=== PATIENT | male | born 1945 | race Caucasian/White ===

== ENCOUNTER 2020-08-30 10:33 | Observation (INO) | payer BC, OTHER ==
--- NOTE | 2020-08-30 10:55 | PDOC ---
History of Present Illness - General Chief Complaint: Injury Stated Complaint: FALL, LACERATION Time Seen by Provider: 08/30/20 10:55 - History of Present Illness Initial Comments: 08/30/20 11:25 75 M with NIDDM, liver cancer ( on immunotherapy), anxiety BIBA from home for unable to getting up s/p fall. Patient was watching TV, went to the Toilet, tripped and fell face down. Denied LOC. He was on the floor for over 10 hours. Denied N/V/chest pain/abdominal pain/ back pain/pelvic pain/legs pain. He is AOx4. Collateral information was taken from daughter over the phone. Her name is Casi Duvall ). She revealed that he was admitted to [facility] for dehydration. The course of hospital visit was 3 weeks. Afterward, he was discharged to a [facility] for 2 weeks. There, he couldn't do his immunotherapy due to dehydration. He was also seen by Dr. Akhtar there for wound infection. His course of immunotheraphy is supposed to be q3 weeks. His oncologist name is Selina From [facility]. They tried to move him closer to the daughter 's home up [facility] , but he resisted and wanted to live independently. 08/30/20 11:37 PMHX: as in HPI PSHX: gallbladder removal, appendectomy. Meds: insulin. Allergies: none Tob:none Etoh: none Rec drugs:none PCP: Joana. Wound doctor: Hermilo. HUGH GENERAL/CONSTITUTIONAL: No fever or chills. No weakness. HEAD, EYES, EARS, NOSE AND THROAT: No change in vision. No ear pain or discharge. No sore throat. CARDIOVASCULAR: No chest pain or shortness of breath RESPIRATORY: No cough, wheezing, or hemoptysis. GASTROINTESTINAL: No nausea, vomiting, diarrhea or constipation. GENITOURINARY: No dysuria, frequency, or change in urination. MUSCULOSKELETAL: No joint or muscle swelling or pain.+neck pain (chronic) . SKIN: No rash NEUROLOGIC: +headache,no vertigo, loss of consciousness, or change in strength/sensation. ENDOCRINE: No increased thirst. No abnormal weight change HEMATOLOGIC/LYMPHATIC: No anemia, easy bleeding, or history of blood clots. ALLERGIC/IMMUNOLOGIC: No hives or skin allergy. PE GENERAL: AOx4 in no acute distress HEAD: No signs of trauma, normocephalic, atraumatic EYES: PERRLA, EOMI, sclera anicteric, conjunctiva clear ENT: Auricles normal inspection, hearing grossly normal, nares patent, oropharynx has dry blood on the tongue. Nose has dry blood on it, skewed in alignment but this is normal. NECK: Normal ROM, supple, no lymphadenopathy, JVD, or masses LUNGS: No distress, speaks full sentences, clear to auscultation bilaterally HEART: Regular rate and rhythm, normal S1 and S2, no murmurs, rubs or gallops, peripheral pulses normal and equal bilaterally. ABDOMEN: Soft, nontender, normoactive bowel sounds. No guarding, no rebound. No masses. ecchymosis on the insulin injection site. EXTREMITIES : Normal range of motion, no edema. chronic wounds on the right leg (non erythema, non tenderness) healing well.Right knee (erythema, warm) NEUROLOGICAL: Cranial nerves II through XII grossly intact. Normal speech, no focal sensorimotor deficits SKIN: Warm, Dry, normal turgor, no rashes or lesions noted 08/30/20 11:43 08/30/20 14:21 Past History - Medical History Allergies/Adverse Reactions: Allergies Allergy/AdvReac Type Severity Reaction Status Date / Time No Known Allergies Allergy Verified 08/30/20 10:46 Home Medications: Ambulatory Orders Collagenase Clostridium Hist. [Santyl] 1 applic TP DAILY #90 oint...g. 06/08/20 LORazepam [Ativan] 0.5 mg PO TID PRN 06/08/20 Metformin HCl [Glucophage] 500 mg PO DAILY 06/08/20 Cancer: Yes (H/O Liver tumor) COPD: No Diabetes: Yes Liver Disease: Yes (Liver tumor) - Surgical History Appendectomy: Yes (Age 19) Cholecystectomy: Yes (25 yrs ago) - Psycho-Social/Smoking History Smoking History: Never smoked Have you smoked in the past 12 months: No Information on smoking cessation initiated: No - Substance Abuse Hx (Audit-C & DAST Scrn) How often the patient has a drink containing alcohol: Never Score: In Men: 4 or > Positive; In Women: 3 or > Positive: 0 Screen Result (Pos requires Nsg. Audit-10AR): Negative In the last yr the pt used illegal drug/Rx for NonMed reason: No Score: Yes response is considered Positive: 0 Screen Result (Positive result requires Nsg. DAST-10): Negative *Physical Exam - Vital Signs Last Vital Signs Temp Pulse Resp BP Pulse Ox 97.6 F 104 H 18 149/72 98 08/30/20 10:46 08/30/20 10:46 08/30/20 10:46 08/30/20 10:46 08/30/20 10:46 ED Treatment Course - LABORATORY CBC & Chemistry Diagram: 08/30/20 12:36 08/30/20 12:36 Medical Decision Making - Medical Decision Making 08/30/20 11:42 75 M with IDDM presented here for unable to get up after a mechanical fall. -HEAD CT+ neck + facial bone -CBC, CMP , trop, Mag, CPK. -EKG -Chest Xray. -UA Concerning for brain bleed, rhapdomyosis, infection. Result: -HEAD CT+ neck + facial bone: nonconcerning/negative for acute brain b leed/fracture. -Bloodwork revealed: elevated LIver enzymes, High total bili of 6.2, high alphos -EKG: sinus rhtym with PVC , vent rate 100, QTc 462, no previous EKG to compare to. Per daughter's information, his liver enzyme is high on baseline. She worked in health care and knew all the information from him. Plan to admit him due to unable to get up. 08/30/20 14:34 When admitted, please have social work associate called the daughter for the purpose of insurance and rehab placement. ([phone]). Discharge - Discharge Information Problems reviewed: Yes Clinical Impression/Diagnosis: Inability to walk Fall Qualifiers: Encounter type: sequela Qualified Code(s): W19.XXXS - Unspecified fall, sequela Condition: Good - Admission Yes - Follow up/Referral - Patient Discharge Instructions - Post Discharge Activity
[2020-08-30] MEDS ORDERED: LACTATED RINGERS SOLUTION 1000 ML INFUS.BAG IV ONE (11:17)
[2020-08-30] MEDS ORDERED: ACETAMINOPHEN 1000 MG/100 ML VIAL (NON FORMULARY) IVPB ONE (11:17)
[2020-08-30] MEDS ORDERED: ACETAMINOPHEN INJECTION 100 ML IVPB ONE (11:23)
[2020-08-30 13:04] LABS: BASO % 0.7 % (0-2.0); EOS % 0.3 % (0-4.5); HEMATOCRIT 43.6 % (35.4-49); LYMPH % 11.7 % (8-40); MCH 35.7 pg (25.7-33.7); MCHC 34.5 g/dl (32.0-35.9); MEAN CELL VOLUME 103.5 fl (80-96); MEAN PLT VOLUME 7.1 fl (7.5-11.1); MONO % 12.4 % (3.8-10.2); NEUT % 74.9 % (42.8-82.8); PLATELET COUNT 155 K/MM3 (134-434); RBC 4.21 M/mm3 (4.00-5.60); RDW 16.8 % (11.9-15.9); WHITE BLOOD COUNT 7.9 K/mm3 (4.0-10.0)
[2020-08-30 13:16] LABS: POTASSIUM 4.1 mmol/L (3.5-5.1)
[2020-08-30 13:25] LABS: ALBUMIN 2.4 g/dl (3.4-5.0); BILIRUBIN,TOTAL 6.2 mg/dL (0.2-1); BLOOD UREA NITROGEN 9.3 mg/dL (7-18); CALCIUM 9.2 mg/dL (8.5-10.1); CREATININE 0.6 mg/dL (0.55-1.3); TOT PROT 6.5 g/dl (6.4-8.2)
[2020-08-30 13:28] LABS: MAGNESIUM 2.3 mg/dL (1.8-2.4)
--- NOTE | 2020-08-30 13:42 | PDOC ---
Documentation entered by Randy Will SCRIBE, acting as scribe for Alfonso Arias MD. Alfonso Arias MD: This documentation has been prepared by the scribe, Randy Will SCRIBE, under my direction and personally reviewed by me in its entirety. I confirm that the documentation accurately reflects all work, treatment, procedures, and medical decision making performed by me. Attending Attestation - Resident Resident Name: Hermilo Armando - ED Attending Attestation I have performed the following: I have examined & evaluated the patient, The case was reviewed & discussed with the resident, I agree w/resident's findings & plan, Exceptions are as noted - HPI HPI: 08/30/20 11:31 The patient is a 75 year old male with a significant past medical history of liver cancer and DM who presents to the emergency department for evaluation s/p mechanical fall twelve hours ago. The patient reports he stood up after watching television to go to sleep and tripped and fell. He has been walking with a walker and he let go of the walker to go into the bathroom since it is very small and fell. He notes he landed forward and hit his nose on the ground. He endorses he was unable to get up, laying on his face on the floor for ten hours. The patient was recently admitted at an OSH for right leg wound infection and is following Dr. Akhtar. Denies LOC. The patient denies chest/abdominal/back pain, cough, and shortness of breath. Denies fever, chills, nausea, vomiting, and/or any GI symptoms. Denies any symptoms. Denies any other symptoms. Allergies: NKA Surgical Hx: appendectomy, cholecystectomy - Physicial Exam PE: 08/30/20 11:16 GENERAL: The patient is awake, alert, and fully oriented, Nontoxic - in no acute distress. HEAD: Normocephalic, atraumatic. EYES: extraocular movements intact, sclera anicteric, conjunctiva clear. ENT: Normal voice, dry mucous membranes abrasion over the bridge of nose with deformity, no crepitus or focal tenderness, NECK: Normal range of motion, supple without lymphadenopathy, JVD, or masses. LUNGS: Breath sounds equal, clear to auscultation bilaterally. No wheezes, no crackles, no rales. HEART: Regular rate and rhythm, normal S1 and S2 without murmur, rub or gallop. ABDOMEN: Soft, nontender, normoactive bowel sounds. No guarding, no rebound. No masses. EXTREMITIES: Normal range of motion, trace edema. Ecchymosis on the anterior right knee without significant focal bony tenderness NEUROLOGICAL: No facial asymmetry, Normal speech, moving all 4 extremities spontaneously symmetrically PSYCH: Normal mood, normal affect. SKIN: Warm, Dry, normal turgor, no rashes or lesions noted. Back: No midline tenderness to the cervical, thoracic or lumbar spine Musculoskelatal: FROM of b/l shoulders, elbows, wrist. FROM of hips, knees, ankles - No signs of ecchymosis, erythema, or crepitus noted on palpation extremities, chest wall, clavicals, ribs, back. - Medical Decision Making 08/30/20 13:20 75-year-old gentleman presenting status post mechanical fall Patient with an abrasion on his nose, with some bruising on his lower extremities Will obtain blood work to rule out anemia, metabolic derangements, UA to rule out occult UTI CT head C-spine facial bones to rule out fractures Patient does appear dry we will give fluids for hydration If work-up negative consider possible discharge 08/30/20 16:20 labs reviewed. noted for elevated bilirubin. discused with his family, members he has a hx of ca and lfts are elevated at baseline, although uncertan to what degree. however as pt is generally weak, will admit pt for rehab placement in addition to further eval of his elevated lfts Heart Score/ECG Review - ECG Impressions Comment:: 08/30/20 13:20 Twelve-lead EKG was performed and reviewed by me. There is normal sinus rhythm with a normal rate. Rate of 100 PVC present Discharge - Discharge Information Problems reviewed: Yes Clinical Impression/Diagnosis: Inability to walk, Elevated liver enzymes Fall Qualifiers: Encounter type: sequela Qualified Code(s): W19.XXXS - Unspecified fall, sequela Condition: Stable Disposition: ASSISTED FACILITY - Follow up/Referral - Patient Discharge Instructions - Post Discharge Activity
[2020-08-30 14:42] LABS: BILIRUBIN,DIRECT 3.6 mg/dL (0.0-0.2)
[2020-08-30 14:44] LABS: EPI CELLS 1 /uL (0-25.1); HYALINE CASTS 0 /uL (0-3.1); URINE APPEARANCE CLEAR; URINE BILIRUBIN 2+ (NEGATIVE); URINE COLOR DK YELLOW; URINE GLUCOSE (UA) NEGATIVE (NEGATIVE); URINE KETONE NEGATIVE (NEGATIVE); URINE LEUK ESTERASE TRACE (NEGATIVE); URINE NITRITE POSITIVE (NEGATIVE); URINE PROTEIN TRACE (NEGATIVE); URINE RBC 7 /uL (0-23.9); URINE WBC 6 /uL (0-25.8)
--- NOTE | 2020-08-30 14:46 | HP ---
CHIEF COMPLAINT: Fall PCP: Dr. Bernard Hem/Onc: Dr. Jeramie Camacho ([facility]) Wound Care: Dr. Alex Akhtar HISTORY OF PRESENT ILLNESS: 75yo M with h/o liver Ca (suspecting HCC) on immunotherapy q3 weeks, and Type 2 DM who presents today after mechanical fall. Patient provides information and daughter (Casi: [phone]) provides additional insight. Patient today normally uses a walker for his ADLs, however lost hold of it while transferring from toilet to walker. As a result he fell and remained there for 10 hours. Patient only sustained minor abrasions and never loss consciousness throughout. There were no prodromal symptoms prior to the fall. Patient was noted to have recent hospitalization involving a leg wound, severe dehydration and overall stayed for 3 weeks at [facility]. He was discharged from there to a [facility] ([facility]) for another 2 weeks. Patient wanted to continue living alone and unfortunately his daughter lives in [place] so his family support is limited (she is occupational therapy and her is a PA). Patient is amenable to rehab. Denies any fever/chills, cough, SOB, CP, palpitations, abdominal pain, dysuria, polyuria, hematuria, hematochezia, diarrhea/constipation. His last immunotherapy treatment was Saturday 08/25 and he is not due for another dose for another 3 weeks. Baseline transaminases (as of Jul 2020): Total bilirubin: 6.0 AST: 155 ALT: 56 Alk phos: 306 Recent Travel: None besides hospital and rehab stays PAST MEDICAL HISTORY: As above; will obtain records from hematologists office if possible PAST SURGICAL HISTORY: appendectomy and cholecystectomy age 14 and 27 respectively Social History: Smoking: Denies Alcohol: Former heavy drinker for many years Drugs: Denies Retired; lives home alone ( from Breast Ca many years prior); uses walker FamHx: noncontributory Allergies No Known Allergies Allergy (Verified 08/30/20 10:46) HOME MEDICATIONS: Home Medications Medication Instructions Recorded Collagenase Clostridium Hist. 1 applic TP DAILY #90 oint...g. 06/08/20 [Santyl] LORazepam [Ativan] 0.5 mg PO TID PRN 06/08/20 Metformin HCl [Glucophage] 500 mg PO DAILY 06/08/20 REVIEW OF SYSTEMS As per HPI PHYSICAL EXAMINATION Vital Signs - 24 hr 08/30/20 10:46 Temperature 97.6 F Pulse Rate 104 H Respiratory 18 Rate Blood Pressure 149/72 O2 Sat by Pulse 98 Oximetry (%) GENERAL: Awake, alert, and fully oriented, in no acute distress. HEENT: + scleral icterus, Abrasion to bridge of nose without significant bleeding or laceration, facial bones structurally intact without TTP, MMM without blood in oropharynx NECK: No JVD, no C-spine tenderness LUNGS: CTA bilaterally. No wheezes, and no crackles. No accessory muscle use. HEART: RRR, normal S1 and S2 without murmur ABDOMEN: Soft, nontender, distended, normoactive BS, no guarding, no hepatomegaly or nodularity appreciated. MUSCULOSKELETAL: No bony deformities EXTREMITIES: 2+ pulses, warm, well-perfused. No calf tenderness. RLE healing wound without drainage noted, surrounding erythema noted however not warm to touch. No fluctuance underlying NEUROLOGICAL: Nonfocal exam. strength 3+/5 but symmetrical in lower extremities. patellar reflexes 2/4. sensation intact b/l LExt PSYCHIATRIC: Cooperative. Good eye contact. Appropriate mood and affect. SKIN: Warm, dry, no rashes noted, no overt jaundice Laboratory Results - last 24 hr 08/30/20 08/30/20 08/30/20 12:36 12:36 12:36 WBC 7.9 RBC 4.21 Hgb 15.0 Hct 43.6 MCV 103.5 H MCH 35.7 H MCHC 34.5 RDW 16.8 H Plt Count 155 MPV 7.1 L Absolute Neuts (auto) 5.9 Neutrophils % 74.9 Lymphocytes % 11.7 Monocytes % 12.4 H Eosinophils % 0.3 Basophils % 0.7 Nucleated RBC % 0 Sodium 138 Potassium 4.1 Chloride 104 Carbon Dioxide 28 Anion Gap 5 L BUN 9.3 Creatinine 0.6 Est GFR (CKD-EPI)AfAm 114.80 Est GFR (CKD-EPI)NonAf 99.05 Random Glucose 90 Calcium 9.2 Magnesium 2.3 Total Bilirubin 6.2 H Direct Bilirubin 3.6 H AST 189 H ALT 78 H Alkaline Phosphatase 354 H Creatine Kinase 341 H Creatine Kinase Index 1.4 CK-MB (CK-2) 5.1 H Troponin I < 0.02 Total Protein 6.5 Albumin 2.4 L Urine Color Urine Appearance Urine pH Ur Specific [place] Urine Protein Urine Glucose (UA) Urine Ketones Urine Blood Urine Nitrite Urine Bilirubin Urine Urobilinogen Ur Leukocyte Esterase Urine WBC (Auto) Urine RBC (Auto) Urine Casts (Auto) U Epithel Cells (Auto) 08/30/20 14:30 WBC RBC Hgb Hct MCV MCH MCHC RDW Plt Count MPV Absolute Neuts (auto) Neutrophils % Lymphocytes % Monocytes % Eosinophils % Basophils % Nucleated RBC % Sodium Potassium Chloride Carbon Dioxide Anion Gap BUN Creatinine Est GFR (CKD-EPI)AfAm Est GFR (CKD-EPI)NonAf Random Glucose Calcium Magnesium Total Bilirubin Direct Bilirubin AST ALT Alkaline Phosphatase Creatine Kinase Creatine Kinase Index CK-MB (CK-2) Troponin I Total Protein Albumin Urine Color Dk yellow Urine Appearance Clear Urine pH 5.0 Ur Specific [place] 1.015 Urine Protein Trace Urine Glucose (UA) Negative Urine Ketones Negative Urine Blood Negative Urine Nitrite Positive H Urine Bilirubin 2+ H Urine Urobilinogen 1.0 Ur Leukocyte Esterase Trace Urine WBC (Auto) 6 Urine RBC (Auto) 7 Urine Casts (Auto) 0 U Epithel Cells (Auto) 1 Laboratory Tests 08/30/20 08/30/20 12:36 12:36 Total Bilirubin 6.2 H Direct Bilirubin 3.6 H AST 189 H ALT 78 H Alkaline Phosphatase 354 H Creatine Kinase 341 H ASSESSMENT/PLAN: Mechanical Fall History of Liver Ca receiving immunotherapy RLE wound, chronic Macrocytosis Transminitis related to above Elevated CK related to fall --Due to frequent falls and increasing deconditioning will bring to inpatient stay for placement in STR; pt is amenable and next immunotherapy dose in 3 weeks --PT ordered --SW consult ordered (daughter requests to call her: # in HPI, pt in between employer insurance and medicare) --Imaging reviewed without significant acute pathology --Baseline transaminases as above in HPI; no significant difference comparatively --Holding statin in setting of elevated CK --Continue Paxil 10mg qdaily --Continue Santyl for wound RLE --Lovenox daily for DVT PPX considering malignancy [all medications reconciled with daughter by phone] Dispo: PT and STR planning Herber Wells DO - IM Family Medical History Family History: As Documented Visit type - Medication Review Med list reviewed for High Risk Meds patients 65 and older: Yes - Emergency Visit Emergency Visit: Yes ED Registration Date: 08/30/20 Care time: The patient presented to the Emergency Department on the above date and was hospitalized for further evaluation of their emergent condition. - New Patient This patient is new to me today: Yes Date on this admission: 08/30/20 - Critical Care Critical Care patient: No
[2020-08-30 15:16] LABS: URINE BACTERIA 683.4 /uL (0-1359)
[2020-08-30] MEDS ORDERED: FLU VACCINE (FLULAVAL) PF 60 MCG/0.5 ML SYRINGE 2020-2021 IM ONE (16:15)
[2020-08-30 16:52] VITALS: BMI 30.9
[2020-08-30] MEDS ORDERED: ACETAMINOPHEN 500 MG TABLET (FP) PO ONE (19:32)
[2020-08-31] MEDS ORDERED: PARoxetine HCL 10 MG TABLET PO SCH (10:00)
[2020-08-31] MEDS: ENOXAPARIN NA (PORCINE) 40 MG/0.4 ML DISP.SYRIN SQ SCH (10:51)
[2020-08-31] MEDS: PARoxetine HCL 20 MG TABLET PO SCH (10:51)
[2020-08-31] MEDS: LORazepam 0.5 MG TABLET PO PRN ×2 (10:52→20:54)
--- NOTE | 2020-08-31 13:02 | PN ---
Teaching Attending Note Name of Resident: Ning Eller ATTENDING PHYSICIAN STATEMENT I saw and evaluated the patient. I reviewed the resident's note and discussed the case with the resident. I agree with the resident's findings and plan as documented. SUBJECTIVE: pt seen and examined OBJECTIVE: Last Vital Signs Temp Pulse Resp BP Pulse Ox 97.6 F 87 20 149/71 96 08/31/20 06:00 08/31/20 06:00 08/31/20 06:00 08/31/20 06:00 08/31/20 06:00 GENERAL: Awake, alert, and fully oriented, in no acute distress. HEENT: icterus, Abrasion to bridge of nose without significant bleeding or laceration, PERRLA LUNGS: CTA bilaterally. No wheezes, and no crackles. No accessory muscle use. HEART: RRR, normal S1 and S2 without murmur ABDOMEN: Soft, nontender, distended, normoactive BS, no guarding, no hepatomegaly or nodularity appreciated. MUSCULOSKELETAL: No bony deformities EXTREMITIES: RLE healing wound. NEUROLOGICAL: Non focal exam. general deconditioning CBCD WBC 7.9 K/mm3 (4.0-10.0) 08/30/20 12:36 RBC 4.21 M/mm3 (4.00-5.60) 08/30/20 12:36 Hgb 15.0 GM/dL (11.7-16.9) 08/30/20 12:36 Hct 43.6 % (35.4-49) 08/30/20 12:36 MCV 103.5 fl (80-96) H 08/30/20 12:36 MCHC 34.5 g/dl (32.0-35.9) 08/30/20 12:36 RDW 16.8 % (11.9-15.9) H 08/30/20 12:36 Plt Count 155 K/MM3 (134-434) 08/30/20 12:36 MPV 7.1 fl (7.5-11.1) L 08/30/20 12:36 CMP Sodium 138 mmol/L (136-145) 08/30/20 12:36 Potassium 4.1 mmol/L (3.5-5.1) 08/30/20 12:36 Chloride 104 mmol/L (98-107) 08/30/20 12:36 Carbon Dioxide 28 mmol/L (21-32) 08/30/20 12:36 Anion Gap 5 MMOL/L (8-16) L 08/30/20 12:36 BUN 9.3 mg/dL (7-18) 08/30/20 12:36 Creatinine 0.6 mg/dL (0.55-1.3) 08/30/20 12:36 Random Glucose 90 mg/dL (74-106) 08/30/20 12:36 Calcium 9.2 mg/dL (8.5-10.1) 08/30/20 12:36 Total Bilirubin 6.2 mg/dL (0.2-1) H 08/30/20 12:36 AST 189 U/L (15-37) H 08/30/20 12:36 ALT 78 U/L (13-61) H 08/30/20 12:36 Alkaline Phosphatase 354 U/L (45-117) H 08/30/20 12:36 Total Protein 6.5 g/dl (6.4-8.2) 08/30/20 12:36 Albumin 2.4 g/dl (3.4-5.0) L 08/30/20 12:36 CARDIAC ENZYMES Creatine Kinase 341 U/L (26-308) H 08/30/20 12:36 Troponin I < 0.02 ng/ml (0.00-0.05) 08/30/20 12:36 Active Medications Collagenase (Santyl -) 1 applic TP DAILY JASON; Protocol Enoxaparin Sodium (Lovenox -) 40 mg SQ DAILY JASON Last Admin: 08/31/20 10:51 Dose: 40 mg Documented by: Influenza Virus Vaccine (Flulaval Quad [id number] Syr) 60 mcg IM .ONCE ONE Stop: 08/30/20 19:16 Lorazepam (Ativan -) 0.5 mg PO Q8H PRN PRN Reason: ANXIETY Last Admin: 08/31/20 10:52 Dose: 0.5 mg Documented by: Paroxetine HCl (Paxil -) 20 mg PO DAILY JASON Last Admin: 08/31/20 10:51 Dose: 20 mg Documented by: ASSESSMENT AND PLAN: 75 yo Man with h/o liver Ca (suspecting HCC) on immunotherapy q3 weeks, and Type 2 DM who presents today after mechanical fall. # Deconditioning, s/p Mechanical Fall History of metastatic Liver Ca receiving immunotherapy next dose due 09/15 Liver function close to baseline Imaging reviewed without significant acute pathology Holding statin due to elevated CK SW consult for placement PT fall precautions, aspiration precautions RLE wound, chronic Macrocytosis DVT prophylaxis with LMWH
--- NOTE | 2020-08-31 13:56 | PN ---
Physical Exam: SUBJECTIVE: Patient seen and examined at bedside. No acute events overnight. OBJECTIVE: Vital Signs Period Temp Pulse Resp BP Sys/Mejia Pulse Ox Last 24 Hr 97.6 F-98.5 F 86-94 16-20 125-149/56-78 94-99 GENERAL: AAOx3, in no acute distress. HEENT: NCAT, PERRLA, EOMI, sclera anicteric, conjunctiva clear, oropharynx clear w/o exudates. MMM. healing abrasion on middle of nose. NECK: Normal ROM, supple, no lymphadenopathy, JVD, or masses LUNGS: CTABL no wheezes/ rhonchi/ rales. No distress, speaks in full sentences. No increased work of breathing. HEART: RRR, normal S1 S2, no M/R/G, peripheral pulses 2+ and equal b/l ABDOMEN: Soft, NTND, + BS. No guarding or rebound. No hepatomegaly or splen omegaly. MSK: ROM WNL EXTREMITIES: RLE healing wound. No peripheral edema. No clubbing or cyanosis. NEUROLOGICAL: CN II-XII intact. Normal speech, normal gait, no focal sensorimotor deficits. SKIN: RLE healing wound. Warm, Dry, normal turgor, no rashes or lesions noted Laboratory Results - last 24 hr CBC, BMP 08/30/20 12:36 08/30/20 12:36 08/30/20 08/30/20 08/30/20 11:17 12:36 12:36 Sodium 138 Potassium 4.1 Chloride 104 Carbon Dioxide 28 Anion Gap 5 L BUN 9.3 Creatinine 0.6 Est GFR (CKD-EPI)AfAm 114.80 Est GFR (CKD-EPI)NonAf 99.05 POC Glucometer 69 Random Glucose 90 Calcium 9.2 Total Bilirubin 6.2 H Direct Bilirubin 3.6 H AST 189 H ALT 78 H Alkaline Phosphatase 354 H Creatine Kinase Index 1.4 CK-MB (CK-2) 5.1 H Total Protein 6.5 Albumin 2.4 L Urine Color Urine Appearance Urine pH Ur Specific [place] Urine Protein Urine Glucose (UA) Urine Ketones Urine Blood Urine Nitrite Urine Bilirubin Urine Urobilinogen Ur Leukocyte Esterase Urine WBC (Auto) Urine RBC (Auto) Urine Casts (Auto) U Epithel Cells (Auto) Urine Bacteria (Auto) COVID-19 (SEVEN) 08/30/20 08/30/20 14:30 15:09 Sodium Potassium Chloride Carbon Dioxide Anion Gap BUN Creatinine Est GFR (CKD-EPI)AfAm Est GFR (CKD-EPI)NonAf POC Glucometer Random Glucose Calcium Total Bilirubin Direct Bilirubin AST ALT Alkaline Phosphatase Creatine Kinase Index CK-MB (CK-2) Total Protein Albumin Urine Color Dk yellow Urine Appearance Clear Urine pH 5.0 Ur Specific [place] 1.015 Urine Protein Trace Urine Glucose (UA) Negative Urine Ketones Negative Urine Blood Negative Urine Nitrite Positive H Urine Bilirubin 2+ H Urine Urobilinogen 1.0 Ur Leukocyte Esterase Trace Urine WBC (Auto) 6 Urine RBC (Auto) 7 Urine Casts (Auto) 0 U Epithel Cells (Auto) 1 Urine Bacteria (Auto) 683.4 COVID-19 (SEVEN) Not detected Active Medications Generic Name Dose Route Start Last Admin Trade Name Freq PRN Reason Stop Dose Admin Collagenase 1 applic 08/31/20 10:00 Santyl - TP DAILY [facility] Protocol Enoxaparin Sodium 40 mg 08/31/20 10:00 08/31/20 10:51 Lovenox - SQ 40 mg DAILY JASON Administration Influenza Virus Vaccine 60 mcg 08/31/20 15:00 Flulaval Quad [id number] Syr IM 08/31/20 15:01 .ONCE ONE Lorazepam 0.5 mg 08/30/20 19:08 08/31/20 10:52 Ativan - PO 0.5 mg Q8H PRN Administration ANXIETY Paroxetine HCl 20 mg 08/31/20 10:00 08/31/20 10:51 Paxil - PO 20 mg DAILY JASON Administration ASSESSMENT/PLAN: 75 y/o Male with PMX of liver Ca on immunotherapy Q3 weeks, and DM who presenting after a mechanical fall. #Mechanical Fall -likely due to Deconditioning -Imaging reviewed; no significant acute pathology - consult for placement -PT on board -fall precautions in place -aspiration precautions in place #Metastatic Liver Ca -currently on immunotherpy -next dose on 09/15 #Transaminitis -chronic -continue to monitor -statin held due to increased CK #Macrocytosis -B12 and folate levels ordered -f/u results #RLE wound -chronic -continue to monitor #FEN -no standing fluids -monitor lytes; replete PRN -Diabetic diet #Ppx -DVT: Lovenox SQ DAILY dispo: short term rehab planning Visit type - Emergency Visit Emergency Visit: No - New Patient This patient is new to me today: Yes Date on this admission: 08/31/20 - Critical Care Critical Care patient: No - Discharge Referral Referred to [facility] No - Medication Review Med list reviewed for High Risk Meds patients 65 and older: Yes ATTENDING PHYSICIAN STATEMENT I saw and evaluated the patient. I reviewed the resident's note and discussed the case with the resident. I agree with the resident's findings and plan as documented. SUBJECTIVE: OBJECTIVE: ASSESSMENT AND PLAN:
[2020-08-31] MEDS ORDERED: FLU VACCINE (FLULAVAL) PF 60 MCG/0.5 ML SYRINGE 2020-2021 IM ONE (15:00)
--- NOTE | 2020-08-31 15:32 | DS ---
Physical Exam: SUBJECTIVE: Patient seen and examined at bedside. No acute events overnight. OBJECTIVE: Vital Signs Period Temp Pulse Resp BP Sys/Mejia Pulse Ox Last 24 Hr 97.6 F-98.5 F 87-94 18-20 136-149/69-71 94-96 PHYSICAL EXAM GENERAL: AAOx3, in no acute distress. HEENT: NCAT, PERRLA, EOMI, sclera anicteric, conjunctiva clear, oropharynx clear w/o exudates. MMM. healing abrasion on middle of nose. NECK: Normal ROM, supple, no lymphadenopathy, JVD, or masses LUNGS: CTABL no wheezes/ rhonchi/ rales. No distress, speaks in full sentences. No increased work of breathing. HEART: RRR, normal S1 S2, no M/R/G, peripheral pulses 2+ and equal b/l ABDOMEN: Soft, NTND, + BS. No guarding or rebound. No hepatomegaly or splenomegaly. MSK: ROM WNL EXTREMITIES: RLE healing wound. No peripheral edema. No clubbing or cyanosis. NEUROLOGICAL: CN II-XII intact. Normal speech, normal gait, no focal sensorimotor deficits. SKIN: RLE healing wound. Warm, Dry, normal turgor, no rashes or lesions noted LABS Laboratory Results - last 24 hr CBC, BMP 08/30/20 12:36 08/30/20 12:36 08/30/20 08/30/20 08/31/20 11:17 15:09 12:05 POC Glucometer 69 Vitamin B12 4008 H Serum Folate 5 COVID-19 (SEVEN) Not detected HOSPITAL COURSE: 75 y/o Male with PMX of liver Ca on immunotherapy Q3 weeks, and DM who presented after a mechanical fall likely due to deconditioning. No acute pathology was seen in imaging. Patient was discharged pending rehab placement. Date of Admission:08/30/20 08/30/20- CT spine w/o contrast- The alignment is satisfactory. No gross fracture or subluxation is seen. Multilevel degenerative disc disease, anterior spondyl osis and mild disc osteophyte complex, as de scribed above. 08/30/20-CT Facial bones w/o contrast-No gross fracture is identified. Both orbits appear unremarkable 08/30/20-CT brain- No prior is available for comparison Moderate volume loss. 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 Otherwise, no CT evidence of acute intracranial pathology is identified. The calvarium is intact. 08/30/20-Liver US-Small liver with increased echotexture and a partially exophytic solid mass lesion measuring 5 cm in maximum dimension for which further evaluation with MRI is recommended. Ascites Status post cholecystectomy. Nonvisualization of the pancreas, abdominal aorta and inferior vena cava. Date of Discharge: 08/31/20 Minutes to complete discharge: 36 Discharge Summary Problems reviewed: Yes Reason For Visit: FALL Current Active Problems Fall (Acute) Inability to walk (Acute) Condition: Stable - Instructions Diet, Activity, Other Instructions: Your visit: You were admitted to the hospital for a fall. We did imaging but found no abnorm alities. Medications changes: -Continue to take all other home medications as prescribed. Follow up: - Visit with your Primary Care Provider, Dr. Bernard in 2 weeks. Additional Instructions: -You are being discharged to short term rehab. -Please return to the Emergency Department if you experience worsening pain, fevers, chills, shortness of breath, or chest pain, or if you experience any wo rsening, new or concerning symptoms Referrals: ON STAFF,NOT [Non Staff, Medical] - 1 Week [facility] - Home Medications Comprehensive Discharge Medication List: Ambulatory Orders Collagenase Clostridium Hist. [Santyl] 1 applic TP DAILY #90 oint...g. 06/08/20 Metformin HCl [Glucophage] 500 mg PO DAILY 06/08/20 Atorvastatin Ca [Lipitor] 40 mg PO HS 08/30/20 Paroxetine HCl [Paxil -] 20 mg PO DAILY 08/30/20 This patient is new to me today: Yes Date on this admission: 08/31/20 Emergency Visit: No Critical Care patient: No - Discharge Referral Referred to [facility] Med [facility] No ATTENDING PHYSICIAN STATEMENT I saw and evaluated the patient. I reviewed the resident's note and discussed the case with the resident. I agree with the resident's findings and plan as documented. SUBJECTIVE: OBJECTIVE: ASSESSMENT AND PLAN:
[2020-08-31] MEDS ORDERED: PT OWN MED DRAWER 7, Y5N ONE (16:54)
--- NOTE | 2020-08-31 17:05 | EKG ---
Test Reason : Blood Pressure : / mmHG Vent. Rate : 100 BPM Atrial Rate : 100 BPM P-R Int : 134 ms QRS Dur : 092 ms QT Int : 364 ms P-R-T Axes : 000 -27 019 degrees QTc Int : 469 ms SINUS RHYTHM WITH OCCASIONAL PREMATURE VENTRICULAR COMPLEXES POSSIBLE LATERAL INFARCT , AGE UNDETERMINED ABNORMAL ECG NO PREVIOUS ECGS AVAILABLE Confirmed by RICH HENRIQUEZ MD ([id number]) on 08/31/2020 5:05:28 PM Referred By: Confirmed By:RICH HENRIQUEZ MD
[2020-08-31] MEDS: COLLAGENASE CLOSTRIDIUM HIST. 30 GRAMS TUBE TP SCH (17:54)
[2020-09-01 08:46] LABS: BASO % 1.2 % (0-2.0); EOS % 4.6 % (0-4.5); HEMATOCRIT 37.2 % (35.4-49); HEMOGLOBIN 12.9 GM/dL (11.7-16.9); LYMPH % 24.9 % (8-40); MCH 35.5 pg (25.7-33.7); MCHC 34.6 g/dl (32.0-35.9); MEAN CELL VOLUME 102.7 fl (80-96); MEAN PLT VOLUME 7.1 fl (7.5-11.1); MONO % 14.1 % (3.8-10.2); NEUT % 55.2 % (42.8-82.8); PLATELET COUNT 118 K/MM3 (134-434); RBC 3.62 M/mm3 (4.00-5.60); WHITE BLOOD COUNT 5.1 K/mm3 (4.0-10.0)
[2020-09-01 08:50] LABS: BLOOD UREA NITROGEN 8.2 mg/dL (7-18); CALCIUM 8.5 mg/dL (8.5-10.1); CREATININE 0.3 mg/dL (0.55-1.3); POTASSIUM 3.9 mmol/L (3.5-5.1)
[2020-09-01] MEDS ORDERED: PT OWN MED DRAWER 7, Y5N ONE (09:50)
[2020-09-01] MEDS: PARoxetine HCL 20 MG TABLET PO SCH (09:55)
[2020-09-01] MEDS: ENOXAPARIN NA (PORCINE) 40 MG/0.4 ML DISP.SYRIN SQ SCH (09:55)
[2020-09-01] MEDS: COLLAGENASE CLOSTRIDIUM HIST. 30 GRAMS TUBE TP SCH (10:25)
[2020-09-01] MEDS ORDERED: FOLIC ACID 1 MG TABLET (FP) PO SCH (11:00)
[2020-09-01 11:01] VITALS: BP 136/61; PULSE 91; TEMP 97.7
--- NOTE | 2020-09-01 13:21 | PN ---
Physical Exam: SUBJECTIVE: Patient seen and examined at bedside. No acute events reported overnight. OBJECTIVE: Vital Signs Period Temp Pulse Resp BP Sys/Mejia Pulse Ox Last 24 Hr 97.6 F-98.5 F 84-98 18-20 135-138/61-77 95-98 GENERAL: AAOx3, in no acute distress. HEENT: NCAT, PERRLA, EOMI, sclera anicteric, conjunctiva clear, oropharynx clear w/o exudates. MMM. healing abrasion on middle of nose. NECK: Normal ROM, supple, no lymphadenopathy, JVD, or masses LUNGS: CTABL no wheezes/ rhonchi/ rales. No distress, speaks in full sentences. No increased work of breathing. HEART: RRR, normal S1 S2, no M/R/G, peripheral pulses 2+ and equal b/l ABDOMEN: Soft, NTND, + BS. No guarding or rebound. No hepatomegaly or splenomegaly. MSK: ROM WNL EXTREMITIES: RLE healing wound. No peripheral edema. No clubbing or cyanosis. NEUROLOGICAL: CN II-XII intact. Normal speech, normal gait, no focal sensorimotor deficits. SKIN: RLE healing wound. Warm, Dry, normal turgor, no rashes or lesions noted Laboratory Results - last 24 hr CBC, BMP 09/01/20 07:05 09/01/20 07:10 08/31/20 09/01/20 09/01/20 12:05 07:05 07:10 WBC 5.1 RBC 3.62 L Hgb 12.9 Hct 37.2 MCV 102.7 H MCH 35.5 H MCHC 34.6 RDW 17.0 H Plt Count 118 L D MPV 7.1 L Absolute Neuts (auto) 2.8 Neutrophils % 55.2 D Lymphocytes % 24.9 D Monocytes % 14.1 H Eosinophils % 4.6 H D Basophils % 1.2 Nucleated RBC % 0 Sodium 138 Potassium 3.9 Chloride 104 Carbon Dioxide 28 Anion Gap 5 L BUN 8.2 Creatinine 0.3 L Est GFR (CKD-EPI)AfAm 152.63 Est GFR (CKD-EPI)NonAf 131.69 Random Glucose 72 L Calcium 8.5 Vitamin B12 4008 H Serum Folate 5 Active Medications Generic Name Dose Route Start Last Admin Trade Name Freq PRN Reason Stop Dose Admin Collagenase 1 applic 08/31/20 10:00 09/01/20 10:25 Santyl - TP 1 applic DAILY JASON Administration Protocol Enoxaparin Sodium 40 mg 08/31/20 10:00 09/01/20 09:55 Lovenox - SQ 40 mg DAILY JASON Administration Folic Acid 1 mg 09/01/20 11:00 09/01/20 11:14 Folic Acid - PO 1 mg DAILY JASON Administration Lorazepam 0.5 mg 08/30/20 19:08 08/31/20 20:54 Ativan - PO 0.5 mg Q8H PRN Administration ANXIETY Paroxetine HCl 20 mg 08/31/20 10:00 09/01/20 09:55 Paxil - PO 20 mg DAILY JASON Administration ASSESSMENT/PLAN: 75 y/o Male with PMX of liver Ca on immunotherapy Q3 weeks, and DM who presenting after a mechanical fall. #Mechanical Fall -likely due to Deconditioning -Imaging reviewed; no significant acute pathology -SW consult for placement -PT on board -fall precautions in place -aspiration precautions in place -B12 WNL -Folate low; started on folate supplements today #Metastatic Liver Ca -currently on immunotherpy -next dose on 09/15 #Transaminitis -chronic -continue to monitor -statin held due to increased CK #Macrocytosis -B12 and folate levels ordered -f/u results #RLE wound -chronic -continue to monitor -wound care follow up at d/c with Dr. Akhtar #FEN -no standing fluids -monitor lytes; replete PRN -Diabetic diet #Ppx -DVT: Lovenox SQ DAILY dispo: short term rehab planning Visit type - Emergency Visit Emergency Visit: No - New Patient This patient is new to me today: No - Critical Care Critical Care patient: No - Discharge Referral Referred to [facility] Med [facility] No - Medication Review Med list reviewed for High Risk Meds patients 65 and older: Yes ATTENDING PHYSICIAN STATEMENT I saw and evaluated the patient. I reviewed the resident's note and discussed the case with the resident. I agree with the resident's findings and plan as documented. SUBJECTIVE: OBJECTIVE: ASSESSMENT AND PLAN:
--- NOTE | 2020-09-01 16:54 | PN ---
Teaching Attending Note Name of Resident: Ankit Hyde ATTENDING PHYSICIAN STATEMENT I saw and evaluated the patient. I reviewed the resident's note and discussed the case with the resident. I agree with the resident's findings and plan as documented. SUBJECTIVE: No new complaints. OBJECTIVE: Afebrile, Hemodynamically Stable. Last Vital Signs Temp Pulse Resp BP Pulse Ox 97.7 F 91 H 20 136/61 95 09/01/20 08:50 09/01/20 08:50 09/01/20 08:50 09/01/20 08:50 09/01/20 08:50 HEENT: icterus, Abrasion to bridge of nose without significant bleeding or laceration, PERRLA LUNGS: clear to auscultation HEART: S1, S2, RRR ABDOMEN: Soft, nontender, Bowel Sounds normal. EXTREMITIES: RLE healing ulcer proximal to lateral ankle, venous stasis skin changes. NEUROLOGICAL: AAO x 3. Moving all 4 extremities. Laboratory Results - last 24 hr 09/01/20 09/01/20 07:05 07:10 WBC 5.1 RBC 3.62 L Hgb 12.9 Hct 37.2 MCV 102.7 H MCH 35.5 H MCHC 34.6 RDW 17.0 H Plt Count 118 L D MPV 7.1 L Absolute Neuts (auto) 2.8 Neutrophils % 55.2 D Lymphocytes % 24.9 D Monocytes % 14.1 H Eosinophils % 4.6 H D Basophils % 1.2 Nucleated RBC % 0 Sodium 138 Potassium 3.9 Chloride 104 Carbon Dioxide 28 Anion Gap 5 L BUN 8.2 Creatinine 0.3 L Est GFR (CKD-EPI)AfAm 152.63 Est GFR (CKD-EPI)NonAf 131.69 Random Glucose 72 L Calcium 8.5 Home Medications Medication Instructions Recorded Collagenase Clostridium Hist. 1 applic TP DAILY #90 oint...g. 06/08/20 [Santyl] Metformin HCl [Glucophage] 500 mg PO DAILY 06/08/20 Paroxetine HCl [Paxil -] 20 mg PO DAILY 08/30/20 Folic Acid 1 mg PO DAILY 30 Days #30 tablet 09/01/20 ASSESSMENT AND PLAN: 75 year old male with history of Liver Ca on immunotherapy q3 weeks, DM 2, presents with mechanical fall. 1. Deconditioning/Ambulatory Dysfunction s/p Mechanical Fall Accepted for transfer to Rehab for ongoing PT 2. History of Metastatic Liver Ca receiving immunotherapy, next dose due 09/15 LFTs elevated Statin held. 3. RLE wound, chronic, no evidence of infection - wound care on discharge. 4. DM 2 - resume Metformin on discharge. 5. Macrocytosis - B12 non-deficient. Folate level 5, supplemented. Medically stable for discharge to SNF for ongoing Rehab/PT.
== END 2020-09-01 14:50 ==
LOC: JER 10:33 → UNDOADMOB 14:32 → INTOOBSV 14:32 → JERBED 14:32 → J8W 15:44 → INTOOBSV 08-31 15:40 → OBSVTOIN 08-31 15:40
PROVIDERS: ADMIT Internal Medicine
PROC: 3E0234Z Introduction of Serum, Toxoid and Vaccine into Muscle, Percutaneous Approach (ICD-10-PCS; principal; 2020-08-30)
PROC: 3E033NZ Introduction of Analgesics, Hypnotics, Sedatives into Peripheral Vein, Percutaneous Approach (ICD-10-PCS; 2020-08-30)
PROC: 3E023GC Introduction of Other Therapeutic Substance into Muscle, Percutaneous Approach (ICD-10-PCS; 2020-08-30)
PROC: 3E0234Z Introduction of Serum, Toxoid and Vaccine into Muscle, Percutaneous Approach (ICD-10-PCS; 2020-08-30)
DX: C22.9 Malignant neoplasm of liver, not specified as primary or secondary (principal); S00.31XA Abrasion of nose, initial encounter; Z91.81 History of falling; R26.2 Difficulty in walking, not elsewhere classified; E11.9 Type 2 diabetes mellitus without complications; W18.39XA Other fall on same level, initial encounter; Y93.89 Activity, other specified; Y92.009 Unspecified place in unspecified non-institutional (private) residence as the place of occurrence of the external cause; Z79.899 Other long term (current) drug therapy; Z29.9 Encounter for prophylactic measures, unspecified; E66.01 Morbid (severe) obesity due to excess calories; Z68.31 Body mass index [BMI] 31.0-31.9, adult; S80.921A Unspecified superficial injury of right lower leg, initial encounter; D75.89 Other specified diseases of blood and blood-forming organs; F41.9 Anxiety disorder, unspecified; R74.01 Elevation of levels of liver transaminase levels; Z23 Encounter for immunization
CPT/HCPCS: 36415; 70450-TC; 70486-TC; 72125-TC; 76705-TC; 80048; 80053; 81003; 82248; 82550; 82553; 82607; 82746; 82962; 83735; 84484; 85025; 93005; 93010; 97116-GP; 97161-GP; 99285-25; G0378; J0131; Q2036; U0003

== ENCOUNTER 2020-10-04 19:56 | Inpatient (IN) | payer BC, OTHER ==
[2020-10-04] MEDS ORDERED: ACETAMINOPHEN INJECTION 100 ML IVPB ONE (20:13)
[2020-10-04] MEDS ORDERED: DEXTROSE 5%-NORMAL SALINE 500 ML IV ONE (20:19)
[2020-10-04 20:45] LABS: BASO % 0.5 % (0-2.0); HEMATOCRIT 33.7 % (35.4-49); HEMOGLOBIN 11.7 GM/dL (11.7-16.9); LYMPH % 7.2 % (8-40); MCH 36.9 pg (25.7-33.7); MCHC 34.6 g/dl (32.0-35.9); MEAN CELL VOLUME 106.6 fl (80-96); MEAN PLT VOLUME 6.7 fl (7.5-11.1); MONO % 4.3 % (3.8-10.2); PLATELET COUNT 125 K/MM3 (134-434); RBC 3.16 M/mm3 (4.00-5.60); RDW 17.4 % (11.9-15.9); VENOUS BASE EXCESS -0.5 mmol/L (-2-2); VENOUS O2 SATURATION 31.8 % (70-80); VENOUS PCO2 42.1 mmHg (38-52); VENOUS PH 7.385 (7.310-7.410)
[2020-10-04 20:54] LABS: INR 2.05 (0.83-1.09); PROTHROMBIN TIME (PATIENT) 24.3 SEC (9.7-13.0)
[2020-10-04 20:57] LABS: ACTIVATED PTT 43.8 SECONDS (25.2-36.5)
[2020-10-04 21:28] LABS: POTASSIUM 4.1 mmol/L (3.5-5.1)
[2020-10-04 21:30] LABS: ALBUMIN 1.9 g/dl (3.4-5.0); BLOOD UREA NITROGEN 7.3 mg/dL (7-18); CALCIUM 8.5 mg/dL (8.5-10.1)
[2020-10-04 21:34] LABS: CREATININE 0.7 mg/dL (0.55-1.3)
[2020-10-04 21:35] LABS: BILIRUBIN,TOTAL 10.2 mg/dL (0.2-1); TOT PROT 5.7 g/dl (6.4-8.2)
[2020-10-04 21:39] LABS: EPI CELLS 1 /uL (0-25.1); HYALINE CASTS 8 /uL (0-3.1); URINE APPEARANCE CLOUDY; URINE BACTERIA >9,000 /uL (0-1359); URINE BILIRUBIN 3+ (NEGATIVE); URINE COLOR DK YELLOW; URINE GLUCOSE (UA) NEGATIVE (NEGATIVE); URINE KETONE NEGATIVE (NEGATIVE); URINE LEUK ESTERASE 2+ (NEGATIVE); URINE NITRITE POSITIVE (NEGATIVE); URINE PROTEIN 2+ (NEGATIVE); URINE RBC 34 /uL (0-23.9); URINE WBC 290 /uL (0-25.8)
[2020-10-04] MEDS: ALBUMIN HUMAN 25% 12.5 GM/50 ML VIAL IVPB SCH ×4 (21:48→23:16)
[2020-10-04] MEDS ORDERED: VANCOMYCIN 1,500 MG in DEXTROSE 5%-WATER - 250 ML IVPB ONE (21:48)
[2020-10-04] MEDS ORDERED: PIPERACILLIN/TAZOB 4.5 GM 4.5 GM in DEXTROSE 5%-WATER 100 ML IVPB ONE (21:49)
[2020-10-04] MEDS ORDERED: PIPERACILLIN/TAZOB 4.5 GM 4.5 GM/100 ML BAG IVPB ONE (21:51)
[2020-10-04] MEDS ORDERED: dilTIAZem HCL 50 MG/10 ML - 10 ML VIAL IVPUSH ONE (22:01)
[2020-10-04] MEDS ORDERED: dilTIAZem HCL 125 MG/25 ML - 25 ML VIAL ONE (22:11)
[2020-10-04] MEDS ORDERED: LACTATED RINGERS SOLUTION 1000 ML INFUS.BAG IV ONE (22:40)
[2020-10-04 23:10] LABS: MACROCYTOSIS 2+; PLATELET ESTIMATE SLT DECREASE
[2020-10-04] MEDS ORDERED: DEXTROSE 5%-LACTATED RINGERS 1,000 ML IV SCH (23:15)
[2020-10-04 23:42] LABS: YEAST NONE SEEN (NEGATIVE)
[2020-10-05] MEDS ORDERED: LACTATED RINGERS SOLUTION 1000 ML INFUS.BAG IV ONE (00:48)
[2020-10-05] MEDS ORDERED: LACTATED RINGERS SOLUTION 1,000 ML/1,000 ML INFUS.BAG IV STA (01:13)
[2020-10-05] MEDS ORDERED: SODIUM CHLORIDE 0.9% 500 ML INFUS.BAG IV ONE ×2 (01:32→02:57)
[2020-10-05] MEDS ORDERED: PIPERACILLIN/TAZOB 3.375 GM 3.375 GM in DEXTROSE 5%-WATER - 50 ML IVPB SCH (02:00)
[2020-10-05] MEDS ORDERED: MIDAZOLAM HCL 2 MG/2 ML SINGLE DOSE VIAL ONE (03:38)
[2020-10-05] MEDS ORDERED: MIDAZOLAM HCL 2 MG/2 ML SINGLE DOSE VIAL IVPUSH ONE (03:45)
[2020-10-05 03:48] LABS: ARTERIAL BLOOD GAS BASE EXCESS 0.6 mmol/L (-2-2); ARTERIAL BLOOD GAS pH 7.429 (7.350-7.450)
[2020-10-05 03:49] LABS: ALLENS TEST POSITIVE
[2020-10-05 03:50] LABS: ARTERIAL BLOOD GAS PO2 26.9 mmHg (80-100)
[2020-10-05] MEDS ORDERED: MORPHINE SULFATE 2 MG/ML VIAL IVPUSH ONE (04:45)
[2020-10-05 06:46] LABS: BASO % 0.4 % (0-2.0); EOS % 0.4 % (0-4.5); HEMATOCRIT 25.8 % (35.4-49); HEMOGLOBIN 9.1 GM/dL (11.7-16.9); MCH 36.6 pg (25.7-33.7); MCHC 35.1 g/dl (32.0-35.9); MEAN CELL VOLUME 104.2 fl (80-96); MEAN PLT VOLUME 6.4 fl (7.5-11.1); MONO % 6.1 % (3.8-10.2); NEUT % 83.1 % (42.8-82.8); PLATELET COUNT 84 K/MM3 (134-434); RBC 2.47 M/mm3 (4.00-5.60); RDW 17.5 % (11.9-15.9); WHITE BLOOD COUNT 5.8 K/mm3 (4.0-10.0)
[2020-10-05 07:20] LABS: POTASSIUM 3.6 mmol/L (3.5-5.1)
[2020-10-05 07:23] LABS: CALCIUM 7.9 mg/dL (8.5-10.1)
[2020-10-05 07:24] LABS: ALBUMIN 1.9 g/dl (3.4-5.0)
[2020-10-05 07:26] LABS: CREATININE 0.6 mg/dL (0.55-1.3)
[2020-10-05 07:27] LABS: PHOSPHOROUS 1.7 mg/dL (2.5-4.9)
[2020-10-05 07:28] LABS: BILIRUBIN,TOTAL 8.5 mg/dL (0.2-1); TOT PROT 4.5 g/dl (6.4-8.2)
[2020-10-05] MEDS ORDERED: LORazepam 2 MG/ML SDV VIAL IVPUSH PRN (08:00)
[2020-10-05] MEDS ORDERED: DEXTROSE 50%-WATER - 25 GM/50 ML VIAL IVPUSH ONE (08:10)
[2020-10-05] MEDS ORDERED: PIPERACILLIN/TAZOBACTAM 4.5 GM VIAL IVPB ONE (08:25)
[2020-10-05] MEDS ORDERED: DEXTROSE 50%-WATER 25 GM/50 ML DISP.SYRIN ONE (08:25)
[2020-10-05] MEDS ORDERED: DEXTROSE 5%-WATER 100 ML IVPB ONE ×2 (08:26→17:18)
[2020-10-05] MEDS ORDERED: SODIUM PHOSPHATE - 30 MM in DEXTROSE 5%-WATER - 250 ML IVPB ONE (09:30)
[2020-10-05] MEDS: PANTOPRAZOLE SODIUM 40 MG VIAL IVPUSH SCH (09:35)
[2020-10-05] MEDS ORDERED: PIPERACILLIN/TAZOB 4.5 GM 4.5 GM in DEXTROSE 5%-WATER 100 ML IVPB SCH (10:00)
[2020-10-05] MEDS ORDERED: PHYTONADIONE 5 MG TABLET PO ONE (11:32)
[2020-10-05] MEDS ORDERED: MEROPENEM 1 GM VIAL (RESTRICTED TO ID) IVPB ONE (17:18)
[2020-10-05] MEDS: MEROPENEM 1 GM in DEXTROSE 5%-WATER 100 ML IVPB SCH (17:22)
[2020-10-05 18:07] LABS: HEMATOCRIT 27.1 % (35.4-49); HEMOGLOBIN 9.4 GM/dL (11.7-16.9); MCHC 34.8 g/dl (32.0-35.9); MEAN CELL VOLUME 106.4 fl (80-96); MEAN PLT VOLUME 6.6 fl (7.5-11.1); PLATELET COUNT 77 K/MM3 (134-434); RBC 2.55 M/mm3 (4.00-5.60); RDW 17.7 % (11.9-15.9); WHITE BLOOD COUNT 7.1 K/mm3 (4.0-10.0)
[2020-10-05 18:24] LABS: POTASSIUM 3.5 mmol/L (3.5-5.1)
[2020-10-05 18:26] LABS: CALCIUM 8.1 mg/dL (8.5-10.1)
[2020-10-05 18:27] LABS: BLOOD UREA NITROGEN 7.3 mg/dL (7-18); MAGNESIUM 2.1 mg/dL (1.8-2.4)
[2020-10-05 18:30] LABS: CREATININE 0.6 mg/dL (0.55-1.3); PHOSPHOROUS 3.4 mg/dL (2.5-4.9)
[2020-10-05] MEDS ORDERED: SODIUM CHLORIDE 500 ML IV STA (18:37)
[2020-10-05] MEDS ORDERED: SODIUM CHLORIDE 250 ML IV STA (18:39)
[2020-10-05] MEDS: HEPARIN NA (PORCINE) 5,000 UNITS/ML 1ML VIAL SQ SCH (22:22)
[2020-10-06] MEDS ORDERED: PHYTONADIONE 10 MG/1 ML AMP IVPB ONE (00:38)
[2020-10-06] MEDS ORDERED: LACTATED RINGERS SOLUTION 1000 ML INFUS.BAG IV ONE (00:44)
[2020-10-06] MEDS ORDERED: PHYTONADIONE 10 MG/1 ML AMP ONE (01:46)
[2020-10-06] MEDS ORDERED: MEROPENEM 1 GM VIAL (RESTRICTED TO ID) IVPB ONE ×4 (02:33→23:20)
[2020-10-06] MEDS ORDERED: DEXTROSE 5%-WATER 100 ML IVPB ONE ×4 (02:34→23:20)
[2020-10-06] MEDS: MEROPENEM 1 GM in DEXTROSE 5%-WATER 100 ML IVPB SCH ×3 (02:38→17:06)
[2020-10-06] MEDS: HEPARIN NA (PORCINE) 5,000 UNITS/ML 1ML VIAL SQ SCH (07:00)
[2020-10-06 07:07] LABS: INR 2.57 (0.83-1.09); PROTHROMBIN TIME (PATIENT) 30.8 SEC (9.7-13.0)
[2020-10-06 07:10] LABS: POTASSIUM 3.4 mmol/L (3.5-5.1)
[2020-10-06 07:14] LABS: ALBUMIN 1.8 g/dl (3.4-5.0); BLOOD UREA NITROGEN 9.5 mg/dL (7-18); CALCIUM 8.1 mg/dL (8.5-10.1); HEMATOCRIT 30.4 % (35.4-49); HEMOGLOBIN 10.2 GM/dL (11.7-16.9); MCH 35.6 pg (25.7-33.7); MCHC 33.7 g/dl (32.0-35.9); MEAN CELL VOLUME 105.6 fl (80-96); MEAN PLT VOLUME 6.8 fl (7.5-11.1); PLATELET COUNT 94 K/MM3 (134-434); RBC 2.87 M/mm3 (4.00-5.60); RDW 17.8 % (11.9-15.9); WHITE BLOOD COUNT 8.1 K/mm3 (4.0-10.0)
[2020-10-06 07:21] LABS: TOT PROT 4.6 g/dl (6.4-8.2)
[2020-10-06 08:11] LABS: CREATININE 0.7 mg/dL (0.55-1.3)
[2020-10-06] MEDS ORDERED: DEXTROSE 50%-WATER - 25 GM/50 ML VIAL IVPUSH ONE (08:27)
[2020-10-06] MEDS ORDERED: DEXTROSE 50%-WATER 25 GM/50 ML DISP.SYRIN ONE (08:57)
[2020-10-06] MEDS: KCL 10 MEQ IVPB 10 MEQ/100 ML INFUS.BAG IVPB SCH ×2 (09:09→11:45)
[2020-10-06] MEDS: PANTOPRAZOLE SODIUM 40 MG VIAL IVPUSH SCH (09:11)
[2020-10-06] MEDS ORDERED: PIPERACILLIN/TAZOB 4.5 GM 4.5 GM in DEXTROSE 5%-WATER 100 ML IVPB SCH (10:00)
[2020-10-06] MEDS ORDERED: SODIUM CHLORIDE 1,000 ML IV SCH ×2 (11:00→23:50)
[2020-10-06] MEDS ORDERED: SODIUM CHLORIDE 250 ML IV STA (13:20)
[2020-10-06] MEDS ORDERED: FUROSEMIDE 40 MG/4 ML INJECTABLE VIAL IVPUSH ONE (15:01)
[2020-10-06 15:03] VITALS: BMI 25.0
[2020-10-06] MEDS ORDERED: HEPARIN NA (PORCINE) 5,000 UNITS/ML 1ML VIAL SQ SCH (22:00)
[2020-10-06] MEDS ORDERED: MORPHINE SULFATE 2 MG/ML VIAL IVPUSH ONE (22:32)
[2020-10-06] MEDS ORDERED: ALBUTEROL SO4 2.5/IPRATROPIUM 0.5 INH SOL 3 ML VIAL.NEB. NEB ONE (23:24)
[2020-10-06] MEDS ORDERED: LORazepam 2 MG/ML SDV VIAL IVPUSH PRN (23:50)
[2020-10-07] MEDS: MEROPENEM 1 GM in DEXTROSE 5%-WATER 100 ML IVPB SCH ×2 (01:01→10:23)
[2020-10-07] MEDS ORDERED: FUROSEMIDE 40 MG/4 ML INJECTABLE VIAL IVPUSH ONE (04:09)
[2020-10-07 05:20] LABS: ARTERIAL BLD GAS O2 SATURATION 95.9 mmHg (95-98); ARTERIAL BLOOD GAS BASE EXCESS -4.4 mmol/L (-2-2); ARTERIAL BLOOD GAS PO2 89.3 mmHg (80-100); ARTERIAL BLOOD GAS pH 7.298 (7.350-7.450)
[2020-10-07 05:27] LABS: ALLENS TEST POSITIVE
[2020-10-07 05:28] LABS: VENT RATE 12
[2020-10-07] MEDS ORDERED: MORPHINE SULFATE 2 MG/ML VIAL IVPUSH ONE (05:43)
[2020-10-07] MEDS ORDERED: METOPROLOL TARTRATE 5 MG/5 ML VIAL IVPUSH ONE ×2 (06:24→08:26)
[2020-10-07 06:57] LABS: INR 2.14 (0.83-1.09); PROTHROMBIN TIME (PATIENT) 25.3 SEC (9.7-13.0)
[2020-10-07 07:00] LABS: HEMATOCRIT 34.1 % (35.4-49); HEMOGLOBIN 11.5 GM/dL (11.7-16.9); MCH 35.9 pg (25.7-33.7); MCHC 33.9 g/dl (32.0-35.9); MEAN PLT VOLUME 7.2 fl (7.5-11.1); PLATELET COUNT 95 K/MM3 (134-434); RBC 3.22 M/mm3 (4.00-5.60); RDW 18.4 % (11.9-15.9)
[2020-10-07 07:36] LABS: POTASSIUM 3.8 mmol/L (3.5-5.1)
[2020-10-07 07:49] LABS: ALBUMIN 1.8 g/dl (3.4-5.0); BLOOD UREA NITROGEN 15.1 mg/dL (7-18); CALCIUM 8.4 mg/dL (8.5-10.1); MAGNESIUM 2.1 mg/dL (1.8-2.4)
[2020-10-07 07:52] LABS: CREATININE 0.9 mg/dL (0.55-1.3); PHOSPHOROUS 3.8 mg/dL (2.5-4.9)
[2020-10-07 07:54] LABS: BILIRUBIN,TOTAL 11.5 mg/dL (0.2-1); TOT PROT 4.9 g/dl (6.4-8.2)
[2020-10-07] MEDS ORDERED: DEXTROSE 5%-WATER 100 ML IVPB ONE (09:25)
[2020-10-07] MEDS ORDERED: MEROPENEM 1 GM VIAL (RESTRICTED TO ID) IVPB ONE (09:25)
[2020-10-07] MEDS ORDERED: METOPROLOL TARTRATE 5 MG/5 ML VIAL ONE (09:39)
[2020-10-07] MEDS ORDERED: dilTIAZem HCL 50 MG/10 ML - 10 ML VIAL IVPUSH ONE (09:51)
[2020-10-07] MEDS: PANTOPRAZOLE SODIUM 40 MG VIAL IVPUSH SCH (10:23)
[2020-10-07] MEDS ORDERED: MAGNESIUM SULF 50% (8.12 MEQ/2 ML-1 GM VIAL) IVPB ONE (11:30)
[2020-10-07] MEDS: KCL 10 MEQ IVPB 10 MEQ/100 ML INFUS.BAG IVPB SCH ×2 (11:45→12:28)
[2020-10-07] MEDS ORDERED: FUROSEMIDE 40 MG/4 ML INJECTABLE VIAL IVPUSH SCH (14:00)
[2020-10-07] MEDS ORDERED: RAPID SEQUENCE INTUBATION KIT NR ONE (17:27)
[2020-10-07] MEDS ORDERED: MIDAZOLAM HCL 2 MG/2 ML SINGLE DOSE VIAL ONE (17:35)
[2020-10-07] MEDS ORDERED: PROPOFOL 1,000,000 MCG/100 ML VIAL ONE (17:47)
[2020-10-07] MEDS: CEFAZOLIN 2 GM/D5W 2 GM/50 ML ML IVPB SCH (18:10)
[2020-10-07] MEDS ORDERED: NOREPINEPHRINE BITARTRATE 4 MG/4 ML ML IV ONE (18:40)
[2020-10-07] MEDS ORDERED: NOREPINEPHRINE D5W PREMIX 16,000 MCG/500 ML BAG IVPB SCH (18:45)
[2020-10-07] MEDS ORDERED: DEXTROSE 50%-WATER 25 GM/50 ML DISP.SYRIN ONE ×2 (19:30→21:30)
[2020-10-07] MEDS ORDERED: DEXTROSE 50%-WATER - 25 GM/50 ML VIAL IVPUSH ONE ×3 (20:11→21:48)
[2020-10-07 20:44] LABS: ARTERIAL BLOOD GAS BASE EXCESS -8.4 mmol/L (-2-2); ARTERIAL BLOOD GAS PO2 79.1 mmHg (80-100); ARTERIAL BLOOD GAS pH 7.261 (7.350-7.450)
[2020-10-07 20:54] LABS: ALLENS TEST POSITIVE
[2020-10-07 20:55] LABS: VENT RATE 20
[2020-10-07] MEDS ORDERED: PROPOFOL 1,000,000 MCG/100 ML VIAL IVPB SCH (21:30)
[2020-10-08] MEDS: CEFAZOLIN 2 GM/D5W 2 GM/50 ML ML IVPB SCH ×2 (01:22→09:46)
[2020-10-08] MEDS: VASOPRESSIN 40 UNITS in SODIUM CHLORIDE 98 ML IVPB SCH ×2 (06:45→15:12)
[2020-10-08 07:09] LABS: INR 2.06 (0.83-1.09); PROTHROMBIN TIME (PATIENT) 24.8 SEC (9.7-13.0)
[2020-10-08 07:11] LABS: HEMATOCRIT 35.1 % (35.4-49); HEMOGLOBIN 11.6 GM/dL (11.7-16.9); MCH 35.7 pg (25.7-33.7); MCHC 33.1 g/dl (32.0-35.9); MEAN CELL VOLUME 107.8 fl (80-96); MEAN PLT VOLUME 7.6 fl (7.5-11.1); PLATELET COUNT 96 K/MM3 (134-434); RBC 3.26 M/mm3 (4.00-5.60); RDW 18.2 % (11.9-15.9); WHITE BLOOD COUNT 12.1 K/mm3 (4.0-10.0)
[2020-10-08 07:54] LABS: ALBUMIN 1.6 g/dl (3.4-5.0); BLOOD UREA NITROGEN 22.9 mg/dL (7-18); CALCIUM 8.4 mg/dL (8.5-10.1); MAGNESIUM 2.6 mg/dL (1.8-2.4)
[2020-10-08 07:58] LABS: BILIRUBIN,TOTAL 12.7 mg/dL (0.2-1)
[2020-10-08 07:59] LABS: TOT PROT 4.6 g/dl (6.4-8.2)
[2020-10-08 08:01] LABS: PHOSPHOROUS 3.9 mg/dL (2.5-4.9)
[2020-10-08 08:02] LABS: CREATININE 1.5 mg/dL (0.55-1.3)
[2020-10-08] MEDS: PANTOPRAZOLE SODIUM 40 MG VIAL IVPUSH SCH (09:46)
[2020-10-08 10:54] LABS: ARTERIAL BLD GAS O2 SATURATION 96.6 mmHg (95-98); ARTERIAL BLOOD GAS BASE EXCESS -4.4 mmol/L (-2-2)
[2020-10-08 10:57] LABS: ALLENS TEST POSITIVE
[2020-10-08 10:58] LABS: VENT MODE A/C; VENT RATE 20
[2020-10-08] MEDS ORDERED: METOPROLOL TARTRATE 5 MG/5 ML VIAL IVPUSH ONE (11:42)
[2020-10-08] MEDS ORDERED: FLUDROCORTISONE ACETATE 0.1 MG TABLET (FP) PO SCH (11:45)
[2020-10-08] MEDS: HYDROCORTISONE SOD SUCCINATE 100 MG/2 ML VIAL IVPB SCH ×2 (11:56→17:40)
[2020-10-08] MEDS ORDERED: VANCOMYCIN 1 GM in D5W (PRE-DOCKED) 1,000 MG/250 ML IVPB SCH (12:00)
[2020-10-08] MEDS ORDERED: PIPERACILLIN/TAZOB 3.375 GM 3.375 GM in DEXTROSE 5%-WATER - 50 ML IVPB SCH ×2 (12:00→18:00)
[2020-10-08] MEDS ORDERED: FENTANYL NS IVPB 500 MCG/100 ML BAG IVPB SCH ×3 (12:15→15:45)
[2020-10-08] MEDS ORDERED: DEXTROSE 5%-WATER - 50 ML IVPB ONE ×2 (12:49→17:37)
[2020-10-08] MEDS ORDERED: PIPERACILLIN/TAZOBACTAM 3.375 GM VIAL IVPB ONE ×2 (12:49→17:37)
[2020-10-08] MEDS ORDERED: SODIUM CHLORIDE 1,000 ML IV SCH (13:16)
[2020-10-08] MEDS ORDERED: VASOPRESSIN 20 UNITS/ML VIAL IV ONE (15:08)
[2020-10-08 17:57] VITALS: TEMP 98.1
[2020-10-08] MEDS ORDERED: LORazepam 2 MG/ML SDV VIAL IVPUSH PRN (19:34)
[2020-10-08] MEDS ORDERED: MORPHINE SULFATE 2 MG/ML VIAL IVPUSH ONE (19:38)
[2020-10-08] MEDS: MORPHINE SULFATE/0.9% NACL/PF 100 MG/100 ML BAG IVPB SCH (19:45)
[2020-10-08 20:39] VITALS: BP 109/52; PULSE 87
[2020-10-09] MEDS: MORPHINE SULFATE/0.9% NACL/PF 100 MG/100 ML BAG IVPB SCH (03:20)
== END 2020-10-09 05:54 | disposition expired | DRG 871 ==
LOC: JER 19:56 → JICU 22:40
PROVIDERS: ADMIT Internal Medicine Pulmonary Disease; ATTEND Internal Medicine
PROC: 05HM33Z Insertion of Infusion Device into Right Internal Jugular Vein, Percutaneous Approach (ICD-10-PCS; principal; 2020-10-05)
PROC: B543ZZA Ultrasonography of Right Jugular Veins, Guidance (ICD-10-PCS; 2020-10-05)
PROC: 0CHY7BZ Insertion of Airway into Mouth and Throat, Via Natural or Artificial Opening (ICD-10-PCS; 2020-10-05)
PROC: 5A1935Z Respiratory Ventilation, Less than 24 Consecutive Hours (ICD-10-PCS; 2020-10-05)
PROC: 30233K1 Transfusion of Nonautologous Frozen Plasma into Peripheral Vein, Percutaneous Approach (ICD-10-PCS; 2020-10-05)
DX: A41.51 Sepsis due to Escherichia coli [E. coli] (principal); G93.41 Metabolic encephalopathy; J96.01 Acute respiratory failure with hypoxia; I62.03 Nontraumatic chronic subdural hemorrhage; R65.21 Severe sepsis with septic shock; J69.0 Pneumonitis due to inhalation of food and vomit; C22.8 Malignant neoplasm of liver, primary, unspecified as to type; N39.0 Urinary tract infection, site not specified; E87.2 Acidosis; I24.8 Other forms of acute ischemic heart disease; N17.9 Acute kidney failure, unspecified; C79.31 Secondary malignant neoplasm of brain; I50.30 Unspecified diastolic (congestive) heart failure; A41.50 Gram-negative sepsis, unspecified; D69.6 Thrombocytopenia, unspecified; K72.10 Chronic hepatic failure without coma; E11.9 Type 2 diabetes mellitus without complications; K74.60 Unspecified cirrhosis of liver; R00.0 Tachycardia, unspecified; R77.8 Other specified abnormalities of plasma proteins; R74.8 Abnormal levels of other serum enzymes; I25.10 Atherosclerotic heart disease of native coronary artery without angina pectoris; D64.9 Anemia, unspecified; R58 Hemorrhage, not elsewhere classified; R41.82 Altered mental status, unspecified; E87.70 Fluid overload, unspecified; I48.91 Unspecified atrial fibrillation; L89.152 Pressure ulcer of sacral region, stage 2
CPT/HCPCS: 31500; 36415; 36430; 36600; 70450-TC; 71045-TC-FY; 76705-TC; 80048; 80053; 81003; 82140; 82248; 82436; 82550; 82553; 82565; 82803; 82962; 83605; 83735; 84100; 84133; 84300; 84484; 84540; 85025; 85027; 85610; 85730; 86850; 86900; 86901; 87040; 87086; 87186; 87205; 93005; 93010; 93306-TC; 93970-TC; 94002; 94640; 94660; 97116-GP; 97162-GP; 99291; C9803; J1644; P9017; P9047; U0003